=== PATIENT | female | born 1940 | race Hispanic/Latino ===

== ENCOUNTER 2017-02-07 08:41 | Outpatient (CLI) | payer MEDICARE, OTHER ==
--- NOTE | 2017-02-07 11:18 | Mammography Report ---
BILATERAL DIGITAL SCREENING MAMMOGRAM with CAD : 02/07/17 08:41:00 CLINICAL: Routine screening. COMPARISON:10/06/15 FINDINGS: The breasts are heterogeneously dense, which may obscure small masses.Left upper outer biopsy clip. No mass, architectural distortion or suspicious calcifications. IMPRESSION: No mammographic evidence of malignancy. BI-RADS CATEGORY: 2 -- Benign RECOMMENDATION: Routine mammographic screening in one year.
== END 2017-02-07 08:42 | disposition home or self-care (01) ==
LOC: SPVWC 08:41
PROVIDERS: ATTEND Physician Assistant
DX: Z12.31 Encounter for screening mammogram for malignant neoplasm of breast (principal)
CPT/HCPCS: 77067; G0202

== ENCOUNTER 2019-04-01 08:53 | Outpatient (CLI) | payer MEDICARE ==
--- NOTE | 2019-04-02 09:38 | Mammography Report ---
DIGITAL SCREENING MAMMOGRAM WITH CAD, 04/01/2019 INDICATION: Routine screening mammography. TECHNIQUE: Digital bilateral 2D mammography was obtained in the craniocaudal and mediolateral obliq ue projections. This examination was interpreted with the benefit of Computer-Aided Detection analysi s. COMPARISON: 02/22/2018 and mammograms going back to 11/08/2010. FINDINGS: Breast Density: The breasts are heterogeneously dense, which may obscure small masses. A new left far posterior asymmetry on the MLO view may be a lymph node but requires additional evalua tion. No architectural distortion or suspicious calcifications of the left breast. There is no eviden ce of dominant mass, suspicious calcifications or architectural distortion in the right breast. A lef t upper outer biopsy clip. Scattered bilateral benign calcifications. IMPRESSION: Left asymmetry requiring additional imaging. Recommend recall for exaggerated CC and spot magnification MLO views and left breast ultrasound if needed. Follow up recommendation: Special View: Mag Category 0: Incomplete. Needs additional imaging evaluation and/or prior mammograms for comparison. A "normal" or negative report should not discourage follow up or biopsy of a clinically significant f inding. A written summary of these findings will be mailed to the patient. The patient will be entered into a mammography reporting system which will generate a reminder letter for the patient's next appointmen t at the appropriate interval. The [employer] recommends yearly mammograms starting at age 40 and continuing as l claudia as a woman is in good health. Breast MRI is recommended for women with an approximate 20-25% or greater lifetime risk of breast cancer, including women with a strong family history of breast or ova mitchell cancer or who have been treated for Hodgkin's disease. Signer Name: Gary Do MD Signed: 04/02/2019 9:34 AM Workstation Name: [id number]
== END 2019-04-01 08:54 | disposition home or self-care (01) ==
LOC: SPVWC 08:53
PROVIDERS: ATTEND Physician Assistant
DX: Z12.31 Encounter for screening mammogram for malignant neoplasm of breast (principal)
CPT/HCPCS: 77067

== ENCOUNTER 2019-04-25 10:30 | Outpatient (CLI) | payer MEDICARE ==
--- NOTE | 2019-04-25 11:43 | Ultrasound Report ---
LEFT DIGITAL DIAGNOSTIC MAMMOGRAM WITH CAD 04/25/2019 LEFT LIMITED BREAST ULTRASOUND INDICATION: Recall to evaluate an oval circumscribed posterior density on recent screening mammogram. F/U abnormal mammogram TECHNIQUE: Digital left mammographic imaging was performed. Limited ultrasound was performed. This e xamination was interpreted with the benefit of Computer-Aided Detection (CAD) analysis. COMPARISON: 04/01/2019 mammogram FINDINGS: Breast Density: The breast is heterogeneously dense, which may obscure small masses. MAMMOGRAPHIC FINDINGS: An oval circumscribed density is identified on the spot magnification view. Ex aggerated cc view is negative. ULTRASOUND FINDINGS: Targeted ultrasound evaluation was performed of the area of interest. Ultrasou nd was performed from 10:00 to 1:00 and from 5:00 to 7:00. A benign intramammary lymph node at 1:00 1 2 cm from the nipple correlates with the mammographic density. It measures 12 x 4 x 6 mm. No mass or suspicious shadowing. IMPRESSION: A benign intramammary lymph node at 1:00 12 cm from the nipple. No suspicious finding. Follow up recommendation: Routine yearly BI-RADS Category 2: Benign. A "normal" or negative report should not discourage follow up or biopsy of a clinically significant f inding. A written summary of these findings will be mailed to the patient. The patient will be entered into a mammography reporting system which will generate a reminder letter for the patient's next appointmen t at the appropriate interval. According to the [employer], yearly mammograms are recommended starting at age 40 and continuing as long as a woman is in good health. Breast MRI is recommended for women with an won roximately 20-25% or greater lifetime risk of breast cancer, including women with a strong family his tory of breast or ovarian cancer and women who have been treated for Hodgkin's disease. Signer Name: Gary Do MD Signed: 04/25/2019 11:38 AM Workstation Name: [id number]
== END 2019-04-25 10:31 | disposition home or self-care (01) ==
LOC: SPVWC 10:30
PROVIDERS: ATTEND Family Medicine
DX: R92.8 Other abnormal and inconclusive findings on diagnostic imaging of breast (principal); R59.0 Localized enlarged lymph nodes

== ENCOUNTER 2020-09-30 09:58 | Outpatient (CLI) | payer MEDICARE | END 2020-09-30 09:59 | disposition home or self-care (01) | LOC: SPVWC 09:58 | PROVIDERS: ATTEND Physician Assistant | DX: Z12.31 Encounter for screening mammogram for malignant neoplasm of breast (principal); N64.89 Other specified disorders of breast | CPT/HCPCS: 77063; 77067 ==